=== PATIENT | female | born 1940 | race Caucasian/White ===

== ENCOUNTER 2021-04-27 11:11 | Inpatient (IN) | payer MEDICARE ==
[~2021-04-27] VITALS: Ht 149.9 cm; Wt 48.5 kg
[~2021-04-27 11:11] MED LIST: ACET325T26 PO; ASPI81TA45 PO; ATOR40TA78 PO; CLOP75TA PO; LIDO700A20 TD; LISI5TAB7 PO; OXYC1TAB18 PO; TRAM50TA2 PO
--- NOTE | 2021-04-27 11:23 | NUR ---
ATTEMPTING TO CONTACT SON TO SEE IF FACIAL DROOP IS NEW OR R/T TO OLD STROKE. PT STS SHE NORMALLY DOESNT HAVE FACIAL DROOP BUT ALSO STS THAT AFTER STROKE SHE HAS MEMORY ISSUES. [facility] NOTIFIED.
[2021-04-27 11:52] LABS: BASOPHILS % (AUTO) 0 % (0-1); EOSINOPHILS % (AUTO) 0 % (1-7); LYMPHOCYTES % (AUTO) 5 % (22-44); MEAN CORPUSCULAR HEMOGLOBIN 31.4 pg (27.0-34.8); MEAN CORPUSCULAR HGB CONC 33.3 g/dL (32.4-35.8); MEAN PLATELET VOLUME 10.5 fL (7.4-10.4); MONOCYTES % (AUTO) 24 % (2-9); NEUTROPHILS % (AUTO) 71 % (42-75); PLATELET COUNT 71 x10^3/uL (130-400); RED BLOOD COUNT 2.97 x10^6/uL (3.82-5.3); RED CELL DISTRIBUTION WIDTH 16.8 % (9.6-15.2)
[2021-04-27 11:59] LABS: MICROSCOPIC AUTO
[2021-04-27] MEDS ORDERED: SODIUM CHLORIDE FLUSH 10ML SYR IVF ONE (12:00)
[2021-04-27 12:08] LABS: ALANINE AMINOTRANSFERASE 56 U/L (12-78); ALBUMIN 3.6 g/dL (3.4-5.0); ANION GAP 7 mmol/L (5-15); CALCIUM 10.3 mg/dL (8.5-10.1); CHLORIDE 110 mmol/L (98-107); CREATININE 0.78 mg/dL (0.55-1.02)
[2021-04-27 12:13] LABS: ALKALINE PHOSPHATASE 481 U/L (45-117); BILIRUBIN,TOTAL 0.7 mg/dL (0.2-1.0); TOTAL PROTEIN 7.2 g/dL (6.4-8.2); TROPONIN I 0.834 ng/mL (0.000-0.045)
--- NOTE | 2021-04-27 12:13 | NUR ---
NO CHANGE IN NEURO ASSESSMENT. AWAITING RESULTS
--- NOTE | 2021-04-27 12:17 | NUR ---
trop 0.843
[2021-04-27] MEDS ORDERED: ASPIRIN 81 MG TABLET CHEW ONE (12:39)
--- NOTE | 2021-04-27 12:42 | NUR ---
ct shows mult subacute strokes, pt tbadm. as
[2021-04-27] MEDS ORDERED: ASPIRIN 81 MG TABLET CHEW PO ONE (13:00)
[2021-04-27] MEDS ORDERED: SODIUM CHLORIDE 0.9% 1,000 ML IV ONE (13:30)
[2021-04-27] MEDS ORDERED: SODIUM CHLORIDE FLUSH 10ML SYR IVF PRN (13:30)
--- NOTE | 2021-04-27 14:05 | NUR ---
BREAK RN: PT RESTING, WANTING FOOD. CURRENTLY NPO
--- NOTE | 2021-04-27 14:18 | NUR ---
Jenaro, son: [phone]
[2021-04-27 14:23] LABS: TROPONIN I 0.751 ng/mL (0.000-0.045)
--- NOTE | 2021-04-27 14:57 | NUR ---
report to mika barber. as
--- NOTE | 2021-04-27 15:03 | NUR ---
late entry: initial nih 2 on arrival (facial droop L side and mild weakness L lower extrem). pt at 1500 still has L facial droop but L leg strength appears to be back to her baseilne. as
[2021-04-27 15:39] VITALS: BP 142/81
[2021-04-27] MEDS ORDERED: ONDANSETRON 4 MG TABLET PO PRN (16:30)
[2021-04-27] MEDS ORDERED: LIDODERM 5% PATCH TD PRN (18:00)
[2021-04-27] MEDS ORDERED: ACETAMINOPHEN 325 MG TABLET PO PRN (18:00)
[2021-04-27 19:07] LABS: INTERNATIONAL NORMALIZED RATIO 1.14 (0.93-1.1); PROTHROMBIN TIME 12.1 Seconds (9.6-11.5)
[2021-04-27 19:31] VITALS: BP 119/58
[2021-04-27] MEDS: LISINOPRIL 5 MG TABLET PO SCH (20:31)
[2021-04-27] MEDS: ATORVASTATIN 40 MG TABLET PO SCH (20:31)
[2021-04-27 21:30] VITALS: BP 99/60
[2021-04-27 23:35] VITALS: BP 122/75
[2021-04-28] VITALS (7 sets, daily range): BP systolic 97–139; BP diastolic 46–81
[2021-04-28] MEDS: ASPIRIN 81 MG TABLET EC PO SCH (05:28)
[2021-04-28 05:34] LABS: CHOL/HDL RATIO 2.1; LDL/HDL RATIO 0.8 (0.5-3.0)
[2021-04-28] MEDS: POTASSIUM CHLORIDE 20 MEQ TAB.ER.PRT PO SCH ×2 (08:26→16:49)
[2021-04-28] MEDS: ENOXAPARIN 40 MG/0.4 ML SQ SCH (08:27)
[2021-04-28] MEDS: LISINOPRIL 5 MG TABLET PO SCH ×2 (08:27→20:36)
[2021-04-28] MEDS ORDERED: ASPIRIN 81 MG TABLET CHEW PO/NG SCH (09:00)
[2021-04-28 16:48] LABS: TROPONIN I 0.375 ng/mL (0.000-0.045)
[2021-04-28 17:19] LABS: MEAN CORPUSCULAR HEMOGLOBIN 31.9 pg (27.0-34.8); MEAN CORPUSCULAR HGB CONC 33.7 g/dL (32.4-35.8); MEAN PLATELET VOLUME 11.6 fL (7.4-10.4); PLATELET COUNT 65 x10^3/uL (130-400); RED BLOOD COUNT 2.63 x10^6/uL (3.82-5.3); RED CELL DISTRIBUTION WIDTH 17.1 % (9.6-15.2)
[2021-04-28 17:24] LABS: CALCIUM 9.9 mg/dL (8.5-10.1); CHLORIDE 108 mmol/L (98-107); CREATININE 0.83 mg/dL (0.55-1.02)
[2021-04-28 17:41] LABS: ANION GAP 3 mmol/L (5-15)
[2021-04-28 18:04] LABS: LYMPH#(MANUAL) 0.89 x10^3/uL (1-3.4); LYMPHS% (MANUAL) 5 % (22-44); MONOS% (MANUAL) 35 % (2-9); MYELOCYTES# (MANUAL) 0.18 x10^3/uL (0-0); MYELOCYTES% (MANUAL) 1 % (0-0); SEG#(MANUAL) 10.44 x10^3/uL (1.8-6.8); SEGS% (MANUAL) 59 % (42-75)
[2021-04-28 18:07] LABS: ANISOCYTOSIS 1+
[2021-04-28 18:08] LABS: <PLATELET ESTIMATE> DECREASED; POLYCHROMASIA 1+
[2021-04-28 18:09] LABS: LARGE PLATELETS 1+
[2021-04-28] MEDS: ATORVASTATIN 40 MG TABLET PO SCH (20:36)
[2021-04-28] MEDS: MELATONIN 5 MG TABLET PO PRN (20:36)
[2021-04-29 00:08] VITALS: BP 142/76
[2021-04-29 05:15] LABS: MEAN CORPUSCULAR HEMOGLOBIN 32.1 pg (27.0-34.8); MEAN PLATELET VOLUME 11.5 fL (7.4-10.4); PLATELET COUNT 67 x10^3/uL (130-400); RED BLOOD COUNT 2.67 x10^6/uL (3.82-5.3); RED CELL DISTRIBUTION WIDTH 16.7 % (9.6-15.2)
[2021-04-29 05:22] LABS: CALCIUM 10.1 mg/dL (8.5-10.1); CHLORIDE 107 mmol/L (98-107)
[2021-04-29] MEDS: ASPIRIN 81 MG TABLET EC PO SCH (05:27)
[2021-04-29 05:29] LABS: ALANINE AMINOTRANSFERASE 107 U/L (12-78); ALKALINE PHOSPHATASE 557 U/L (45-117); ANION GAP 3 mmol/L (5-15); BILIRUBIN,TOTAL 0.7 mg/dL (0.2-1.0); CREATININE 0.72 mg/dL (0.55-1.02); TOTAL PROTEIN 6.7 g/dL (6.4-8.2)
[2021-04-29 05:46] LABS: BANDS%(MANUAL) 1 % (0-7); EOS% (MANUAL) 2 % (1-7); LYMPHS% (MANUAL) 1 % (22-44); MONOS#(MANUAL) 5.97 x10^3/uL (0.3-2.7); MONOS% (MANUAL) 30 % (2-9); SEG#(MANUAL) 13.13 x10^3/uL (1.8-6.8); SEGS% (MANUAL) 66 % (42-75)
[2021-04-29 05:47] LABS: <PLATELET ESTIMATE> DECREASED; ANISOCYTOSIS 1+; LARGE PLATELETS 1+; POLYCHROMASIA 1+
[2021-04-29] MEDS ORDERED: CEFTRIAXONE 2 GM in DEXTROSE 5% 50 ML IVPB SCH (06:30)
[2021-04-29 07:13] VITALS: BP 142/79
[2021-04-29] MEDS: ENOXAPARIN 40 MG/0.4 ML SQ SCH (09:00)
[2021-04-29] MEDS: POTASSIUM CHLORIDE 20 MEQ TAB.ER.PRT PO SCH ×2 (09:00→17:10)
[2021-04-29] MEDS: LISINOPRIL 5 MG TABLET PO SCH ×3 (09:01→20:33)
[2021-04-29 09:19] VITALS: BP 99/64
[2021-04-29] MEDS ORDERED: NITROGLYCERIN 0.4 MG/SPRAY SL PRN (09:30)
[2021-04-29 13:32] VITALS: BP 93/57
[2021-04-29 13:34] VITALS: BP 93/57
[2021-04-29 14:13] LABS: TROPONIN I 0.162 ng/mL (0.000-0.045)
[2021-04-29] MEDS ORDERED: LACTATED RINGERS 500 ML IVBOLUS ONE (17:00)
[2021-04-29] MEDS: LACTATED RINGERS 1,000 ML IV SCH (17:13)
[2021-04-29] MEDS: PIPERACILLIN/TAZO 2.25 GM in DEXTROSE 5% 50 ML IVPB SCH ×2 (19:52→23:47)
[2021-04-29 20:30] VITALS: BP 118/72
[2021-04-29] MEDS: ATORVASTATIN 40 MG TABLET PO SCH (20:33)
[2021-04-30 03:26] VITALS: BP 98/64
[2021-04-30] MEDS: PIPERACILLIN/TAZO 2.25 GM in DEXTROSE 5% 50 ML IVPB SCH ×4 (05:07→23:46)
[2021-04-30 05:13] LABS: MEAN CORPUSCULAR HEMOGLOBIN 32.1 pg (27.0-34.8); MEAN CORPUSCULAR HGB CONC 33.6 g/dL (32.4-35.8); MEAN PLATELET VOLUME 11.9 fL (7.4-10.4); PLATELET COUNT 61 x10^3/uL (130-400); RED BLOOD COUNT 2.44 x10^6/uL (3.82-5.3); RED CELL DISTRIBUTION WIDTH 16.8 % (9.6-15.2)
[2021-04-30 05:21] LABS: CHLORIDE 105 mmol/L (98-107)
[2021-04-30 05:29] LABS: ALANINE AMINOTRANSFERASE 159 U/L (12-78); ALBUMIN 2.6 g/dL (3.4-5.0); ALKALINE PHOSPHATASE 584 U/L (45-117); ANION GAP 4 mmol/L (5-15); BILIRUBIN,TOTAL 0.6 mg/dL (0.2-1.0); CALCIUM 9.5 mg/dL (8.5-10.1); CREATININE 0.85 mg/dL (0.55-1.02); TOTAL PROTEIN 6.5 g/dL (6.4-8.2)
[2021-04-30 05:48] LABS: BANDS%(MANUAL) 1 % (0-7); LYMPHS% (MANUAL) 4 % (22-44); MONOS#(MANUAL) 8.64 x10^3/uL (0.3-2.7); MONOS% (MANUAL) 43 % (2-9); SEG#(MANUAL) 10.45 x10^3/uL (1.8-6.8); SEGS% (MANUAL) 52 % (42-75)
[2021-04-30 05:49] LABS: ANISOCYTOSIS 1+; POLYCHROMASIA 1+
[2021-04-30 05:50] LABS: <PLATELET ESTIMATE> DECREASED; LARGE PLATELETS 1+
[2021-04-30 06:18] VITALS: BP 116/75
[2021-04-30] MEDS: ASPIRIN 81 MG TABLET EC PO SCH (08:00)
[2021-04-30] MEDS ORDERED: OMNIPAQUE 350 MG/ML, 100ML BOTTLE ONE (09:10)
[2021-04-30] MEDS: LISINOPRIL 5 MG TABLET PO SCH ×2 (09:11→20:25)
[2021-04-30] MEDS: POTASSIUM CHLORIDE 20 MEQ TAB.ER.PRT PO SCH ×2 (09:11→17:00)
[2021-04-30] MEDS: ENOXAPARIN 40 MG/0.4 ML SQ SCH (09:12)
[2021-04-30 12:36] VITALS: BP 126/74
[2021-04-30] MEDS: LACTATED RINGERS 1,000 ML IV SCH (14:17)
[2021-04-30 18:50] VITALS: BP 100/57
[2021-04-30] MEDS: ATORVASTATIN 40 MG TABLET PO SCH (20:24)
[2021-05-01] VITALS (7 sets, daily range): BP systolic 105–131; BP diastolic 65–79
[2021-05-01] MEDS: ASPIRIN 81 MG TABLET EC PO SCH (05:26)
[2021-05-01] MEDS: PIPERACILLIN/TAZO 2.25 GM in DEXTROSE 5% 50 ML IVPB SCH ×4 (05:26→23:47)
[2021-05-01 05:27] LABS: MEAN CORPUSCULAR HEMOGLOBIN 31.1 pg (27.0-34.8); MEAN PLATELET VOLUME 12.1 fL (7.4-10.4); PLATELET COUNT 69 x10^3/uL (130-400); RED CELL DISTRIBUTION WIDTH 16.7 % (9.6-15.2)
[2021-05-01 05:38] LABS: ALANINE AMINOTRANSFERASE 166 U/L (12-78); ALBUMIN 2.3 g/dL (3.4-5.0); ANION GAP 4 mmol/L (5-15); CALCIUM 9.5 mg/dL (8.5-10.1); CHLORIDE 105 mmol/L (98-107)
[2021-05-01 05:40] LABS: ALKALINE PHOSPHATASE 594 U/L (45-117); BILIRUBIN,TOTAL 0.6 mg/dL (0.2-1.0); TOTAL PROTEIN 6.2 g/dL (6.4-8.2)
[2021-05-01 06:05] LABS: EOS#(MANUAL) 0.16 x10^3/uL (0.0-0.4); EOS% (MANUAL) 1 % (1-7); SEG#(MANUAL) 9.11 x10^3/uL (1.8-6.8); SEGS% (MANUAL) 58 % (42-75)
[2021-05-01 06:06] LABS: ANISOCYTOSIS 1+; LYMPHS% (MANUAL) 7 % (22-44); MONOS#(MANUAL) 5.34 x10^3/uL (0.3-2.7); MONOS% (MANUAL) 34 % (2-9); POLYCHROMASIA 1+
[2021-05-01 06:07] LABS: <PLATELET ESTIMATE> DECREASED; LARGE PLATELETS 1+
[2021-05-01] MEDS: LACTATED RINGERS 1,000 ML IV SCH ×2 (06:13→22:22)
[2021-05-01] MEDS: POTASSIUM CHLORIDE 20 MEQ TAB.ER.PRT PO SCH ×2 (08:00→17:00)
[2021-05-01] MEDS: LISINOPRIL 5 MG TABLET PO SCH ×2 (09:27→20:45)
[2021-05-01] MEDS: ATORVASTATIN 40 MG TABLET PO SCH (20:45)
[2021-05-01] MEDS: POTASSIUM CHLORIDE 20 MEQ PACKET PO SCH (21:00)
[2021-05-01] MEDS ORDERED: ONDANSETRON 2MG/ML, 2ML IVPush PRN (22:00)
[2021-05-02 01:09] VITALS: BP 112/70
[2021-05-02] MEDS: ASPIRIN 81 MG TABLET EC PO SCH (05:38)
[2021-05-02] MEDS: PIPERACILLIN/TAZO 2.25 GM in DEXTROSE 5% 50 ML IVPB SCH ×4 (05:53→23:58)
[2021-05-02 06:15] LABS: MEAN CORPUSCULAR HEMOGLOBIN 30.6 pg (27.0-34.8); MEAN CORPUSCULAR HGB CONC 32.9 g/dL (32.4-35.8); MEAN PLATELET VOLUME 11.9 fL (7.4-10.4); PLATELET COUNT 85 x10^3/uL (130-400); RED BLOOD COUNT 2.51 x10^6/uL (3.82-5.3); RED CELL DISTRIBUTION WIDTH 16.8 % (9.6-15.2)
[2021-05-02 06:23] LABS: ALBUMIN 2.2 g/dL (3.4-5.0); CALCIUM 10.1 mg/dL (8.5-10.1)
[2021-05-02 06:28] LABS: ALANINE AMINOTRANSFERASE 169 U/L (12-78); ALKALINE PHOSPHATASE 689 U/L (45-117); BILIRUBIN,TOTAL 0.7 mg/dL (0.2-1.0); CREATININE 0.79 mg/dL (0.55-1.02); TOTAL PROTEIN 6.2 g/dL (6.4-8.2)
[2021-05-02 06:35] LABS: ANISOCYTOSIS 1+; EOS#(MANUAL) 0.18 x10^3/uL (0.0-0.4); EOS% (MANUAL) 1 % (1-7); LYMPH#(MANUAL) 0.54 x10^3/uL (1-3.4); LYMPHS% (MANUAL) 3 % (22-44); MONOS#(MANUAL) 6.62 x10^3/uL (0.3-2.7); MONOS% (MANUAL) 37 % (2-9); SEG#(MANUAL) 10.56 x10^3/uL (1.8-6.8); SEGS% (MANUAL) 59 % (42-75)
[2021-05-02 06:36] LABS: ANION GAP 9 mmol/L (5-15); CHLORIDE 107 mmol/L (98-107)
[2021-05-02 06:37] LABS: <PLATELET ESTIMATE> DECREASED; LARGE PLATELETS 1+; POLYCHROMASIA 1+
[2021-05-02 07:14] VITALS: BP 119/73
[2021-05-02] MEDS: POTASSIUM CHLORIDE 20 MEQ PACKET PO SCH ×2 (09:00→17:00)
[2021-05-02] MEDS: LISINOPRIL 5 MG TABLET PO SCH ×2 (09:42→21:35)
[2021-05-02] MEDS: LACTATED RINGERS 1,000 ML IV SCH (11:20)
[2021-05-02 15:10] VITALS: BP 126/79
[2021-05-02 18:48] VITALS: BP 134/79
[2021-05-02] MEDS: ATORVASTATIN 40 MG TABLET PO SCH (21:35)
[2021-05-02 23:33] VITALS: BP 124/68
[2021-05-02] MEDS: MELATONIN 5 MG TABLET PO PRN (23:58)
[2021-05-03] MEDS: MORPHINE SULFATE 4 MG/ML, 1ML IVPush PRN (03:46)
[2021-05-03] MEDS: LACTATED RINGERS 1,000 ML IV SCH (04:17)
[2021-05-03] MEDS: PIPERACILLIN/TAZO 2.25 GM in DEXTROSE 5% 50 ML IVPB SCH ×4 (05:42→23:39)
[2021-05-03] MEDS: ASPIRIN 81 MG TABLET EC PO SCH (05:46)
[2021-05-03 07:40] VITALS: BP 120/67
[2021-05-03] MEDS: LISINOPRIL 5 MG TABLET PO SCH ×2 (09:06→21:32)
[2021-05-03] MEDS: POTASSIUM CHLORIDE 20 MEQ PACKET PO SCH ×2 (09:06→17:48)
[2021-05-03 14:39] VITALS: BP 118/64
[2021-05-03 15:44] LABS: BASOPHILS % (AUTO) 0 % (0-1); EOSINOPHILS % (AUTO) 1 % (1-7); LYMPHOCYTES % (AUTO) 2 % (22-44); MEAN CORPUSCULAR HEMOGLOBIN 31.1 pg (27.0-34.8); MEAN CORPUSCULAR HGB CONC 33.3 g/dL (32.4-35.8); MEAN PLATELET VOLUME 11.8 fL (7.4-10.4); MONOCYTES % (AUTO) 36 % (2-9); NEUTROPHILS % (AUTO) 61 % (42-75); PLATELET COUNT 85 x10^3/uL (130-400); RED BLOOD COUNT 2.47 x10^6/uL (3.82-5.3); RED CELL DISTRIBUTION WIDTH 16.8 % (9.6-15.2)
[2021-05-03] MEDS: hydrOXyzine 10MG TABLET PO PRN (17:48)
[2021-05-03 19:17] VITALS: BP 159/77
[2021-05-03] MEDS: ATORVASTATIN 40 MG TABLET PO SCH (21:32)
[2021-05-04] MEDS: hydrOXyzine 10MG TABLET PO PRN (00:51)
[2021-05-04 02:18] LABS: OCCULT BLOOD NEGATIVE (NEGATIVE)
[2021-05-04 02:57] VITALS: BP 122/69
[2021-05-04] MEDS: PIPERACILLIN/TAZO 2.25 GM in DEXTROSE 5% 50 ML IVPB SCH ×4 (05:38→23:07)
[2021-05-04] MEDS: ASPIRIN 81 MG TABLET EC PO SCH (05:44)
[2021-05-04] MEDS: MORPHINE SULFATE 4 MG/ML, 1ML IVPush PRN (07:38)
[2021-05-04 07:43] VITALS: BP 110/65
[2021-05-04] MEDS: LISINOPRIL 5 MG TABLET PO SCH ×2 (09:38→20:08)
[2021-05-04] MEDS: POTASSIUM CHLORIDE 20 MEQ PACKET PO SCH ×2 (09:38→17:00)
[2021-05-04] MEDS: LORazepam 2 MG/ML, 1ML IVPush PRN ×2 (10:23→20:08)
[2021-05-04 13:52] VITALS: BP 116/67
[2021-05-04 18:52] VITALS: BP 123/81
[2021-05-04] MEDS: ATORVASTATIN 40 MG TABLET PO SCH (20:14)
[2021-05-05] VITALS (9 sets, daily range): BP systolic 81–169; BP diastolic 38–97
[2021-05-05] MEDS: PIPERACILLIN/TAZO 2.25 GM in DEXTROSE 5% 50 ML IVPB SCH ×4 (05:08→23:30)
[2021-05-05] MEDS: ASPIRIN 81 MG TABLET EC PO SCH (06:00)
[2021-05-05] MEDS: POTASSIUM CHLORIDE 20 MEQ PACKET PO SCH ×3 (08:00→17:00)
[2021-05-05] MEDS: LISINOPRIL 5 MG TABLET PO SCH ×3 (08:46→21:00)
[2021-05-05] MEDS: LORazepam 2 MG/ML, 1ML IVPush PRN ×3 (12:00→23:33)
[2021-05-05] MEDS: MORPHINE SULFATE 4 MG/ML, 1ML IVPush PRN ×2 (15:03→21:20)
[2021-05-05] MEDS ORDERED: DILTIAZEM 5 MG/ML, 5ML IVPush ONE ×2 (21:00→21:30)
[2021-05-05] MEDS: ATORVASTATIN 40 MG TABLET PO SCH (21:00)
[2021-05-05] MEDS ORDERED: DILTIAZEM 5 MG/ML, 5ML ONE (21:02)
[2021-05-05] MEDS ORDERED: SODIUM CHLORIDE 0.9%, 500ML IVBOLUS ONE (21:30)
[2021-05-05] MEDS ORDERED: AMIODARONE 150 MG in DEXTROSE 5% 100 ML IV ONE (22:00)
[2021-05-05] MEDS ORDERED: AMIODARONE 450 MG in DEXTROSE 5% 241 ML IV PRN (22:00)
[2021-05-05] MEDS ORDERED: FILTER 0.22 MICRON FOR AMIODARONE IV PRN (22:30)
[2021-05-06] MEDS: PIPERACILLIN/TAZO 2.25 GM in DEXTROSE 5% 50 ML IVPB SCH (05:25)
[2021-05-06] MEDS: POTASSIUM CHLORIDE 20 MEQ PACKET PO SCH (07:51)
[2021-05-06] MEDS: LISINOPRIL 5 MG TABLET PO SCH (07:53)
[2021-05-06] MEDS ORDERED: ACETAMINOPHEN 650 MG SUPP PR PRN (10:00)
[2021-05-06] MEDS: LORazepam 2 MG/ML, 1ML IVPush PRN ×2 (12:25→17:52)
[2021-05-07] MEDS: LORazepam 2 MG/ML, 1ML IVPush PRN ×4 (00:03→14:16)
[2021-05-07] MEDS: MORPHINE SULFATE 4 MG/ML, 1ML IVPush PRN ×5 (03:39→23:42)
[2021-05-07] MEDS: ATROPINE OPHTH SOLN 1%, 5ML PO PRN ×2 (03:47→14:16)
[2021-05-08] MEDS: LORazepam 2 MG/ML, 1ML IVPush PRN ×2 (00:13→08:15)
[2021-05-08] MEDS: MORPHINE SULFATE 4 MG/ML, 1ML IVPush PRN ×3 (04:25→11:26)
[2021-05-08] MEDS: ATROPINE OPHTH SOLN 1%, 5ML PO PRN ×4 (04:26→11:21)
[2021-05-08] MEDS ORDERED: SCOPOLAMINE PATCH, 1.5MG PATCH.TD72 TD ONE ×2 (08:12→10:19)
[2021-05-08] MEDS ORDERED: SCOPOLAMINE 1MG PATCH TD SCH (08:30)
[2021-05-08] MEDS ORDERED: SCOPOLAMINE PATCH, 1.5MG PATCH.TD72 TD SCH (10:30)
[2021-05-11] MEDS ORDERED: SCOPOLAMINE PATCH, 1.5MG PATCH.TD72 TD SCH (08:30)
== END 2021-05-08 17:20 | DRG 64 ==
LOC: ED 12:42 → EDIP 13:27 → SUATTDRO 13:38 → 5SO 15:08 → 4NW 05-06 17:42
PROVIDERS: ADMIT Family Medicine; ATTEND Internal Medicine
PROC: 0T9B30Z Drainage of Bladder with Drainage Device, Percutaneous Approach (ICD-10-PCS; 2021-04-27)
PROC: 30233N1 Transfusion of Nonautologous Red Blood Cells into Peripheral Vein, Percutaneous Approach (ICD-10-PCS; principal; 2021-05-01)
DX: I63.431 Cerebral infarction due to embolism of right posterior cerebral artery (principal); I21.A1 Myocardial infarction type 2; J96.90 Respiratory failure, unspecified, unspecified whether with hypoxia or hypercapnia; I47.1 Supraventricular tachycardia; I48.92 Unspecified atrial flutter; C25.9 Malignant neoplasm of pancreas, unspecified; C78.7 Secondary malignant neoplasm of liver and intrahepatic bile duct; G81.94 Hemiplegia, unspecified affecting left nondominant side; Z66 Do not resuscitate; Z51.5 Encounter for palliative care; D50.9 Iron deficiency anemia, unspecified; D69.6 Thrombocytopenia, unspecified; E78.5 Hyperlipidemia, unspecified; R29.810 Facial weakness; H53.462 Homonymous bilateral field defects, left side; I48.0 Paroxysmal atrial fibrillation; I65.23 Occlusion and stenosis of bilateral carotid arteries; W18.39XA Other fall on same level, initial encounter; I70.8 Atherosclerosis of other arteries; Z86.73 Personal history of transient ischemic attack (TIA), and cerebral infarction without residual deficits; Z79.82 Long term (current) use of aspirin; Z79.899 Other long term (current) drug therapy; Y93.89 Activity, other specified; Y92.89 Other specified places as the place of occurrence of the external cause; Y99.8 Other external cause status; Z88.8 Allergy status to other drugs, medicaments and biological substances
CPT/HCPCS: 36415; 70450; 70551; 71045; 71260; 74177; 80048; 80053; 80061; 81001; 82272; 82728; 83540; 83550; 83735; 83880; 84145; 84484; 85014; 85018; 85025; 85610; 86850; 86900; 86923; 87040; 93005; 93306; G0378; J0696; J1650; J2405; J2543; J7120; Q9967; 92523-GN; J2060; J2270; J7040; P9016